=== PATIENT | female | born 1940 | race Caucasian/White ===

== ENCOUNTER 2025-04-06 07:32 | Inpatient (IN) ==
[2025-04-06] MEDS: FUROSEMIDE 100 MG/10 ML VIAL IV ONE (08:20)
[2025-04-06] MEDS: cefTRIAXone 1 GM VIAL IV ONE (08:20)
[2025-04-06] MEDS: AZITHROMYCIN 500 MG in DEXTROSE 5% IN WATER 250 ML IV ONE (08:20)
[2025-04-06 08:22] LABS: Basophils # (Auto) 0.07 K/mcL (0.00-0.30); Basophils % (Auto) 1.0 % (0.0-2.0); Eosinophils # (Auto) 0.16 K/mcL (0.00-0.70); Eosinophils % (Auto) 2.3 % (0.0-7.0); Hematocrit 32.7 % (34.1-44.9); Hemoglobin 10.3 g/dL (11.2-15.7); Lymphocytes # (Auto) 1.24 K/mcL (1.50-4.80); Lymphocytes % (Auto) 17.9 % (15.5-49.0); Mean Corpuscular HGB Conc 31.5 g/dL (31.0-36.0); Monocytes # (Auto) 0.29 K/mcL (0.10-0.90); Monocytes % (Auto) 4.2 % (1.0-12.0); Neutrophils % (Auto) 74.5 % (38.0-78.0); Platelet Count 182 K/mcL (140-440); RBC 3.19 M/mcL (3.59-5.38); WBC 6.9 K/mcL (4.5-11.0)
[2025-04-06 08:40] LABS: Anion Gap 12.0 (8.0-16.0); Blood Urea Nitrogen 15 mg/dL (8-23); Calcium 8.6 mg/dL (8.6-10.4); Carbon Dioxide 19 mmol/L (22-30); Chloride 104 mmol/L (96-108); Glucose 127 mg/dL (70-105); Potassium 4.3 mmol/L (3.3-5.1); Sodium 135 mmol/L (133-145)
[2025-04-06 09:28] LABS: Bacteria,Urine Few /hpf (0); Bilirubin,Urine Negative (Negative); Color,Urine Yellow; Glucose,Urine (UA) Negative (Negative); Ketones,Urine Negative (Negative); Leukocyte Esterase,Urine Negative /uL (Negative); PH,Urine 7.0 (5.0-9.0); Protein,Urine >=300 mg/dL (Negative); Specific Gravity,Urine 1.025 (1.000-1.035); Urobilinogen,Urine Normal
[2025-04-06] MEDS: NITROGLYCERIN 0.4 MG TAB.SUBL SL ONE (10:01)
[2025-04-06] MEDS: NITROGLYCERIN 1 GM OINT.TOP TD ONE (11:09)
[2025-04-06] MEDS ORDERED: ONDANSETRON 4 MG/2 ML VIAL IV PRN (14:39)
[2025-04-06] MEDS ORDERED: SENNOSIDES 1 TABLET PO SCH (14:39)
[2025-04-06] MEDS ORDERED: LACTULOSE 20 GM/30 ML ORAL.SOL PO PRN (14:39)
[2025-04-06] MEDS: 0.9 % SODIUM CHLORIDE 10 ML SYRINGE IV SCH (15:07)
[2025-04-06] MEDS: ACETAMINOPHEN 1,000 MG/100 ML BAG IV ONE (15:07)
[2025-04-06] MEDS: 0.9 % SODIUM CHLORIDE 250 ML IV SCH (15:33)
[2025-04-06 15:43] LABS: ALT/SGPT 11 U/L (<40); AST/SGOT 31 U/L (<32); Albumin 3.8 gm/dL (3.2-5.2); Albumin/Globulin Ratio 1.5 (1.0-2.3); Alkaline Phosphatase 54 U/L (39-117); Anion Gap 16.0 (8.0-16.0); Bilirubin,Direct 0.4 mg/dL (<0.3); Bilirubin,Total 0.7 mg/dL (0.1-1.0); Blood Urea Nitrogen 16 mg/dL (8-23); Calcium 8.6 mg/dL (8.6-10.4); Carbon Dioxide 17 mmol/L (22-30); Chloride 101 mmol/L (96-108); Globulin 2.5 gm/dL (2.2-3.7); Glucose 181 mg/dL (70-105); Phosphorous 4.1 mg/dL (2.5-4.5); Potassium 4.7 mmol/L (3.3-5.1); Sodium 134 mmol/L (133-145); Thyroid Stimulating Hormone 5.82 uIU/mL (0.27-5.01); Triglycerides 83 mg/dL (<150); Uric Acid 5.0 mg/dL (2.5-8.0)
[2025-04-06] MEDS: NITROGLYCERIN/D5W 25 MG/250 ML BOTTLE IV SCH (15:50)
[2025-04-06] MEDS: FUROSEMIDE 40 MG/4 ML VIAL IV SCH (16:50)
[2025-04-06 18:30] LABS: Creatinine, Spot Urine 19.7 mg/dL (28.0-217.0); Pro:Crea Ratio 14.57 (<0.20); Protein, Spot Urine 287.0 mg/dL
[2025-04-06] MEDS: ASPIRIN 81 MG TAB.CHEW PO SCH (20:07)
[2025-04-06] MEDS: ATORVASTATIN 40 MG TABLET PO SCH (20:07)
[2025-04-06] MEDS: LISINOPRIL 20 MG TABLET PO SCH (20:07)
[2025-04-06] MEDS: HEPARIN 5,000 UNIT/ML VIAL SQ SCH (20:07)
[2025-04-06] MEDS: LABETALOL 100 MG TABLET PO SCH (20:31)
[2025-04-07 06:02] LABS: Basophils # (Auto) 0.06 K/mcL (0.00-0.30); Basophils % (Auto) 1.0 % (0.0-2.0); Eosinophils # (Auto) 0.06 K/mcL (0.00-0.70); Eosinophils % (Auto) 1.0 % (0.0-7.0); Hematocrit 28.3 % (34.1-44.9); Hemoglobin 9.2 g/dL (11.2-15.7); Lymphocytes # (Auto) 1.07 K/mcL (1.50-4.80); Lymphocytes % (Auto) 17.3 % (15.5-49.0); Mean Corpuscular HGB Conc 32.5 g/dL (31.0-36.0); Monocytes # (Auto) 0.50 K/mcL (0.10-0.90); Monocytes % (Auto) 8.1 % (1.0-12.0); Neutrophils % (Auto) 72.6 % (38.0-78.0); Platelet Count 164 K/mcL (140-440); RBC 2.80 M/mcL (3.59-5.38); WBC 6.2 K/mcL (4.5-11.0)
[2025-04-07 06:28] LABS: ALT/SGPT 11 U/L (<40); AST/SGOT 26 U/L (<32); Albumin 3.1 gm/dL (3.2-5.2); Albumin/Globulin Ratio 1.6 (1.0-2.3); Alkaline Phosphatase 42 U/L (39-117); Anion Gap 12.0 (8.0-16.0); Bilirubin,Direct 0.4 mg/dL (<0.3); Bilirubin,Total 0.8 mg/dL (0.1-1.0); Blood Urea Nitrogen 17 mg/dL (8-23); Calcium 8.2 mg/dL (8.6-10.4); Carbon Dioxide 23 mmol/L (22-30); Chloride 101 mmol/L (96-108); Globulin 1.9 gm/dL (2.2-3.7); Glucose 84 mg/dL (70-105); Phosphorous 3.4 mg/dL (2.5-4.5); Potassium 3.8 mmol/L (3.3-5.1); Sodium 136 mmol/L (133-145); Triglycerides 71 mg/dL (<150); Uric Acid 5.9 mg/dL (2.5-8.0)
[2025-04-07] MEDS ORDERED: BISACODYL 10 MG SUPP.RECT PR PRN (07:36)
[2025-04-07] MEDS: BUMETANIDE 1 MG/4 ML VIAL IV SCH (09:22)
[2025-04-07] MEDS: LISINOPRIL 20 MG TABLET PO SCH (09:23)
[2025-04-07] MEDS: SENNOSIDES 1 TABLET PO SCH (09:23)
[2025-04-07] MEDS: POTASSIUM CHLORIDE 20 MEQ TABLET PO ONE (09:23)
[2025-04-07] MEDS: POLYETHYLENE GLYCOL 3350 17 GM PACKET PO SCH (09:23)
[2025-04-07] MEDS: LEVOTHYROXINE 25 MCG TABLET PO SCH (09:23)
[2025-04-07] MEDS: MESALAMINE 0.375 GM PO SCH (09:53)
[2025-04-07 14:35] LABS: Anion Gap 12.0 (8.0-16.0); Blood Urea Nitrogen 19 mg/dL (8-23); Calcium 8.2 mg/dL (8.6-10.4); Carbon Dioxide 23 mmol/L (22-30); Chloride 101 mmol/L (96-108); Glucose 122 mg/dL (70-105); Potassium 3.7 mmol/L (3.3-5.1); Sodium 136 mmol/L (133-145)
[2025-04-07] MEDS ORDERED: [UNRECOGNIZED DRUG - OTHER] PO PRN (15:31)
[2025-04-07] MEDS ORDERED: NITROGLYCERIN 0.4 MG TAB.SUBL SL PRN (15:35)
[2025-04-07] MEDS: FUROSEMIDE 40 MG TABLET PO SCH (16:07)
[2025-04-07] MEDS: VITAMIN D3 25 MCG TABLET PO SCH (20:18)
[2025-04-08 06:01] LABS: Basophils # (Auto) 0.04 K/mcL (0.00-0.30); Basophils % (Auto) 0.8 % (0.0-2.0); Eosinophils # (Auto) 0.13 K/mcL (0.00-0.70); Eosinophils % (Auto) 2.8 % (0.0-7.0); Hematocrit 29.1 % (34.1-44.9); Hemoglobin 9.3 g/dL (11.2-15.7); Lymphocytes # (Auto) 1.54 K/mcL (1.50-4.80); Lymphocytes % (Auto) 32.6 % (15.5-49.0); Mean Corpuscular HGB Conc 32.0 g/dL (31.0-36.0); Monocytes # (Auto) 0.46 K/mcL (0.10-0.90); Monocytes % (Auto) 9.7 % (1.0-12.0); Neutrophils % (Auto) 54.1 % (38.0-78.0); Platelet Count 140 K/mcL (140-440); RBC 2.83 M/mcL (3.59-5.38); WBC 4.7 K/mcL (4.5-11.0)
[2025-04-08 06:49] LABS: ALT/SGPT 10 U/L (<40); AST/SGOT 26 U/L (<32); Albumin 3.0 gm/dL (3.2-5.2); Albumin/Globulin Ratio 1.4 (1.0-2.3); Alkaline Phosphatase 40 U/L (39-117); Anion Gap 10.0 (8.0-16.0); Bilirubin,Direct 0.3 mg/dL (<0.3); Bilirubin,Total 0.6 mg/dL (0.1-1.0); Blood Urea Nitrogen 19 mg/dL (8-23); Calcium 8.1 mg/dL (8.6-10.4); Carbon Dioxide 24 mmol/L (22-30); Chloride 106 mmol/L (96-108); Globulin 2.2 gm/dL (2.2-3.7); Glucose 92 mg/dL (70-105); Phosphorous 3.4 mg/dL (2.5-4.5); Potassium 3.8 mmol/L (3.3-5.1); Sodium 140 mmol/L (133-145); Triglycerides 70 mg/dL (<150); Uric Acid 6.6 mg/dL (2.5-8.0)
[2025-04-08 07:46] LABS: Total Protein 24 Hour,Urine 535.5 mg/24hr (0.0-150.0)
[2025-04-08] MEDS ORDERED: METOPROLOL TARTRATE 5 MG/5 ML VIAL IV PRN (13:07)
[2025-04-09] MEDS: ACETAMINOPHEN 325 MG TABLET PO PRN (04:31)
[2025-04-09 06:23] LABS: ALT/SGPT 12 U/L (<40); AST/SGOT 25 U/L (<32); Albumin 3.0 gm/dL (3.2-5.2); Albumin/Globulin Ratio 1.6 (1.0-2.3); Alkaline Phosphatase 40 U/L (39-117); Anion Gap 10.0 (8.0-16.0); Bilirubin,Direct 0.3 mg/dL (<0.3); Bilirubin,Total 0.6 mg/dL (0.1-1.0); Blood Urea Nitrogen 21 mg/dL (8-23); Calcium 7.9 mg/dL (8.6-10.4); Carbon Dioxide 25 mmol/L (22-30); Chloride 103 mmol/L (96-108); Globulin 1.9 gm/dL (2.2-3.7); Glucose 92 mg/dL (70-105); Phosphorous 3.4 mg/dL (2.5-4.5); Potassium 3.7 mmol/L (3.3-5.1); Sodium 138 mmol/L (133-145); Triglycerides 70 mg/dL (<150); Uric Acid 7.5 mg/dL (2.5-8.0)
[2025-04-10 07:06] LABS: ALT/SGPT 11 U/L (<40); AST/SGOT 24 U/L (<32); Albumin 2.9 gm/dL (3.2-5.2); Albumin/Globulin Ratio 1.5 (1.0-2.3); Alkaline Phosphatase 40 U/L (39-117); Anion Gap 11.0 (8.0-16.0); Bilirubin,Direct 0.3 mg/dL (<0.3); Bilirubin,Total 0.5 mg/dL (0.1-1.0); Blood Urea Nitrogen 24 mg/dL (8-23); Calcium 7.8 mg/dL (8.6-10.4); Carbon Dioxide 25 mmol/L (22-30); Chloride 103 mmol/L (96-108); Globulin 1.9 gm/dL (2.2-3.7); Glucose 91 mg/dL (70-105); Phosphorous 4.0 mg/dL (2.5-4.5); Potassium 3.8 mmol/L (3.3-5.1); Sodium 139 mmol/L (133-145); Triglycerides 70 mg/dL (<150); Uric Acid 8.2 mg/dL (2.5-8.0)
[2025-04-10 07:28] VITALS: TEMP 97.8; O2SAT 91
[2025-04-11 14:08] LABS: Alpha-1-Globulin 3.3 %; Alpha-2-Globulin 4.8 %; Gamma Globulin 7.9 %; Protein Total Random Urine 33.4 mg/dL (Not Estab.)
[2025-04-12 16:22] LABS: Albumin PEP 2.80 gm/dL (3.10-4.70); Albumin/Globulin Ratio PEP 1.3 RATIO (0.9-1.7); Globulin PEP 2.2 gm/dL (2.4-3.6); Total Protein PEP 5.0 gm/dL (5.9-8.4)
== END 2025-04-10 11:51 | DRG 291 ==
LOC: ED 07:32 → ICU 14:25 → MEDSUR 04-08 15:25
PROVIDERS: ADMIT Internal Medicine; ATTEND Internal Medicine